=== PATIENT | female | born 1955 | race Asian ===

== ENCOUNTER 2017-01-03 08:48 | Day surgery (SDC) | payer OTHER ==
[~2017-01-03] VITALS: Ht 157.5 cm; Wt 41.4 kg
[2017-01-03] MEDS ORDERED: LANTUS INSULIN10 ML SC (09:27)
[2017-01-03] MEDS ORDERED: PLAVIX75 MG PO (09:47)
[2017-01-03] MEDS ORDERED: CARAFATE1 G PO (09:48)
[2017-01-03] MEDS ORDERED: PROTONIX20 MG PO (09:48)
[2017-01-03] MEDS ORDERED: PRINIVIL20 MG PO (09:49)
[2017-01-03] MEDS ORDERED: GABAPENTIN100 MG PO (09:50)
[2017-01-03 09:57] VITALS: BP 169/78; Ht 157.5 cm; Wt 41.4 kg
--- NOTE | 2017-01-03 10:10 | NUR ---
0920- PT STATES THAT SHE FEELS THOUGH HER BLOOD SUGAR IS LOW. FSBS=40. 0925- DR. AQUINO NOTIFIED. VERBAL ORDER FOR 1/2 AMP D50 IVP GIVEN. WILL ADMINISTER. 0935- RIGHT ARM IV STARTED. 25 ML OF D50 GIVEN IV. 1010- HMAF=064.
[2017-01-03 10:11] LABS: BASOPHILS 0.8 % (0-2); EOSINOPHILS 8.5 % (0-7); HEMATOCRIT 37.3 % (36.0-48.0); HEMOGLOBIN 12.7 g/dL (12-16); IMMATURE GRANULOCYTES 0.2 % (0-5); LYMPHOCYTES 48.3 % (15-50); MCH 31.9 pg (26.0-34.0); MCV 93.7 fL (80.0-100.0); MEAN PLATELET VOLUME 8.6 fL (7.4-10.4); MONOCYTES 7.4 % (2-11); NEUTROPHILS 34.8 % (40-80); PLATELET COUNT 379 10x3/uL (130-400); RBC 3.98 10x6/uL (4.00-5.40); RDW 21.2 % (11.5-14.5); WBC 9.1 10x3/uL (4.8-10.8)
[2017-01-03 10:27] LABS: CALC OSMOLALITY 276 mosm/kg (275-300); CALCIUM 9.1 mg/dL (8.5-10.1); CARBON DIOXIDE 29.8 mmol/L (21.0-32.0); CHLORIDE - SERUM 103 mmol/L (98-107); CREATININE - SERUM 0.5 mg/dL (0.6-1.3); POTASSIUM - SERUM 4.4 mmol/L (3.5-5.1); SODIUM 140 mmol/L (136-145); UREA NITROGEN 17 mg/dL (7-18); eGFR NON AFRICAN AMERICAN > 90 mL/min (90-120)
[2017-01-03 10:40] LABS: GLUCOSE 25 mg/dL (74-106)
--- NOTE | 2017-01-04 14:43 | OP ---
PATIENT NAME: ITZEL PITTS MEDICAL RECORD: [id number] :53 LOCATION:[facility] ADMISSION DATE: SURGEON: CHERYL LUCOI DO DATE OF OPERATION: 01/03/2017 PROCEDURE: EGD with biopsies. INDICATIONS FOR PROCEDURE: History of a gastric ulcer. She also has anemia. She underwent upper endoscopy in September 2016, which revealed severe ulcerations. This is a reevaluation of those findings. SCOPE: Olympus video gastroscope. MEDICATIONS: Propofol 100 mg IV per anesthesia. ESTIMATED BLOOD LOSS: Minimal. COMPLICATIONS: None. FINDINGS: Informed consent was given. The patient was made comfortable with the above medication. After reaching an adequate level of sedation by slow IV push, the patient was placed on her left side. The endoscope was then advanced under direct visualization through the mouth to the second portion of the duodenum. The upper, middle, and lower thirds of the esophagus appeared normal. At the GE junction, there was mild evidence of LA class C reflux-induced esophagitis characterized by breaks in the mucosal Z line across 2 folds but occupying less than 75% of the diameter of the GE junction. The scope was advanced beyond the GE junction into the stomach and retroflexed to view the cardia, where a diminutive sliding hiatal hernia was present. The fundus appeared normal. As the scope was advanced along the body of the stomach, there were 2 sites where the previous ulcers were visualized. One was along the greater curvature of the stomach. This site appears significantly improved, but there is still a residual very superficial ulcer, which is clean based present at that site. The scope was advanced slightly more distal and approaching the anterior wall and lesser curvature of the stomach, there is a scar from a previous ulcer, which has healed. The antrum and prepyloric region appeared normal. Random biopsies were taken to submit for histology and to rule out H. pylori. The endoscope was advanced beyond the pylorus into the duodenum where the bulb and second portion of the duodenum appeared normal. The endoscope was then withdrawn from the patient. The patient tolerated the procedure well and there were no complications. IMPRESSION: 1. LA class C, reflux-induced esophagitis. 2. Small sliding hiatal hernia. 3. Gastric ulcer significantly improved from when this was previously visualized. 4. Previous scar from a healed ulcer. PLAN AND RECOMMENDATIONS: 1. Discharge home when recovery parameters are met. 2. Follow up biopsy specimen results. 3. Continue current medications including Protonix 40 mg daily for another 90 days and Carafate suspension 1 gram per 10 mL q.i.d. times another 30 days. 4. Repeat endoscopy does not need to be made to reevaluate these ulcers as they OPERATIVE REPORT [id number] ITZEL PITTS S are obviously healing. The significant time that this is taking to heal correlates with the patient's poorly controlled diabetes which inhibits wound healing. 5. Follow up in GI clinic as needed. 6. Follow up with primary care physician as scheduled. TRANSINT:[id number] Voice Confirmation ID: [id number] DOCUMENT ID: [id number] CHERYL LUCIO DO at 1443 CC: [id number] DICTATION DATE: 01/03/17 1049 TREE EXPERT: 01/03/17 1139 [facility] 01/03/[address] [id number]
== END 2017-01-03 11:40 | disposition home or self-care (01) ==
LOC: D.OPS 08:48
PROVIDERS: Anesthesiology
DX: K21.0 Gastro-esophageal reflux disease with esophagitis (principal); K44.9 Diaphragmatic hernia without obstruction or gangrene; K25.9 Gastric ulcer, unspecified as acute or chronic, without hemorrhage or perforation; K29.50 Unspecified chronic gastritis without bleeding; D64.9 Anemia, unspecified; Z01.812 Encounter for preprocedural laboratory examination